=== PATIENT | female | born 1980 | race Caucasian/White ===

== ENCOUNTER 2016-09-23 11:17 | Emergency (ER) | payer MEDICAID ==
--- NOTE | 2016-09-23 11:36 | Emergency Department Record ---
History of Present Illness - General Chief complaint: Vaginal bleeding Stated complaint: HEAVY MENSTRUAL BLEEDING Time Seen by Provider: 09/23/16 11:28 Source: Patient Mode of Arrival: Ambulatory Limitations: No limitations - History of Present Illness Initial comments: The patient is here due to a hx of a heavy menses for 2 days. She states she usually bleeds heavy for one day but this menses she has bled heavy for 2 days. There is no reported fever, chills, dizziness or lightheadedness. There are no clots present. MD Complaint: Vaginal bleeding Onset/Timin -: Days(s) Quality: Cramping Consistency: Intermittent Improves with: None Worsens with: None - Related Data Home Medications Medication Instructions Recorded Confirmed Last Taken Vit/Iron Fumarate/FA 1 each PO DAILY tab 05/14/16 09/23/16 09/23/16 [ Vitamin Tablet] Allergies Allergy/AdvReac Type Severity Reaction Status Date / Time cefaclor [From Ceclor] Allergy HIVES Verified 09/23/16 11:20 amoxicillin trihydrate AdvReac NAUSEA AND Verified 09/23/16 11:20 [From Augmentin] VOMITING potassium clavulanate AdvReac NAUSEA AND Verified 09/23/16 11:20 [From Augmentin] VOMITING Travel Screening - Travel/Exposure Within Last 30 Days Have you traveled within the last 30 days?: No - Travel/Exposure Within Last Year Have you traveled outside the [place] in the last year?: No - Additonal Travel Details Have you been exposed to anyone with a communicable illness?: No - Travel Symptoms Symptom Screening: None Review of Systems Constitutional: Denies: Chills, Fever Eyes: Denies: Eye discharge ENT: Denies: Congestion Respiratory: Denies: Cough, Dyspnea Past Medical History - SOCIAL HISTORY Smoking Status: Former smoker Alcohol Use: Rare Drug Use: None - RESPIRATORY Hx Respiratory Disorders: Yes Hx Asthma: Yes - CARDIOVASCULAR Hx Cardio Disorders: Yes Comment:: preventricular contracture - NEURO Hx Neuro Disorders: Yes Comment:: fainting - GI Hx GI Disorders: Yes Hx Crohn's Disease: Yes Hx Irritable Bowel: Yes Hx Ulcer: Yes - Hx Genitourinary Disorders: No - ENDOCRINE Hx Endocrine Disorders: No - MUSCULOSKELETAL Hx Musculoskeletal Disorders: Yes Hx Arthritis: Yes (hips and knees) - PSYCH Hx Psych Problems: Yes Hx Depression: Yes (childhood) - HEMATOLOGY/ONCOLOGY Hx Hematology/Oncology Disorders: Yes Hx Anemia: Yes Family Medical History Any Significant Family History?: No Physical Exam - General General Appearance: Alert, Oriented x3, Cooperative, No acute distress - Head Head exam: Atraumatic, Normocephalic, Normal inspection - Eye Eye exam: Normal appearance, PERRL - Neck Neck exam: Normal inspection, Full ROM. negative: Tenderness - Respiratory Respiratory exam: Normal lung sounds bilaterally. negative: Respiratory distress - Cardiovascular Cardiovascular Exam: Regular rate, Normal rhythm, Normal heart sounds - GI/Abdominal GI/Abdominal exam: Soft, Normal bowel sounds. negative: Rebound, Rigid, Tenderness - exam: Normal bimanual exam, Vaginal bleeding (mild to moderate. I did use 2 large swabs to dry up the vaginal vault and there was no further bleeding.). negative: Abnormal external exam, Adnexal mass (L), Adnexal mass (R), Adnexal tenderness (L), Adnexal tenderness (R), Cervical discharge, cervical motion tenderness, Enlarged uterus, Vaginal discharge, Vaginal erythema Course Vital Signs 09/23/16 11:22 Temperature 98.6 F Pulse Rate 71 Respiratory 20 Rate Blood Pressure 128/83 Pulse Ox 100 - Reevaluation(s) Reevaluation #1: The patient is doing well. She denies any pain, discomfort, or any dizziness or lightheadedness. She is up ambulating normally. I explained to her that this appears to be just a heavy menses. She states her flow now is like a normal menses and she is ready for home. 09/23/16 12:57 Medical Decision Making - Lab Data Result diagrams: 09/23/16 11:45 09/23/16 11:45 Disposition Disposition: Discharge Clinical Impression: Menorrhagia Qualifiers: Menorrahagia type: with regular cycle Qualified Code(s): N92.0 - Excessive and frequent menstruation with regular cycle Disposition: Home, Self-Care Condition: (1) Good Instructions: Menstruation (ED) Additional Instructions: Please use Tylenol or Motrin for pain. Please see your PCP if not better in 3 days. Return to the ER for any increased bleeding, pain, dizziness or lightheadedness. Forms: Patient Portal Access Time of Disposition: 12:56
[2016-09-23 11:52] LABS: BASO % 0.1 % (0-6); EOS % 0.6 % (0-6); GRAN % 67.8 % (47-80); HEMATOCRIT 35.8 % (35.0-47.0); HEMOGLOBIN 11.6 gm/dl (11.6-16.0); LYMPH % 25.2 % (16-45); MEAN CELL VOLUME 89.7 fl (81-97); MEAN CORPUSCULAR HEMOGLOBIN 29.1 pg (27-33); MEAN CORPUSCULAR HGB CONC 32.4 g/dl (32-36); MEAN PLATELET VOLUME 10.1 fl (7.4-10.4); MONO % 6.3 % (0-9); PLATELET COUNT 263 K/uL (130-400); RED BLOOD COUNT 3.99 M/uL (3.80-5.40); RED CELL DISTRIBUTION WIDTH 14.4 % (11.5-14.5); WHITE BLOOD COUNT W/O DIFF 7.2 K/uL (4.2-12.2)
[2016-09-23 12:04] LABS: BLOOD UREA NITROGEN 12 mg/dL (7-17); CREATININE 0.7 mg/dL (0.52-1.04); EST GLOMERULAR FILTRATION RATE > 60 ml/min; GLUCOSE,RANDOM 85 mg/dL (70-110)
== END 2016-09-23 13:31 | disposition home or self-care (01) ==
LOC: ER 11:17
DX: N92.0 Excessive and frequent menstruation with regular cycle (principal)
CPT/HCPCS: 80048; 84703; 85025; 99284